=== PATIENT | male | born 2000 | race Caucasian/White ===

== ENCOUNTER 2022-02-12 14:59 | Emergency (ER) | payer SELFPAY ==
[~2022-02-12] VITALS: Ht 167.6 cm; Wt 80.3 kg
[2022-02-12 15:26] VITALS: BP 113/64
[2022-02-12] MEDS ORDERED: NON ADHERENT DRESSING TP SCH (16:05)
[2022-02-12] MEDS ORDERED: IBUPROFEN 600 MG TAB PO ONE (16:05)
[2022-02-12] MEDS ORDERED: BACITRACIN OINT 500 UNITS/GM PKT TP ONE ×2 (16:05→17:35)
[2022-02-12] MEDS ORDERED: IBUP-2213 PO (16:19)
[2022-02-12] MEDS ORDERED: BACI1PAC6 TP (16:19)
[2022-02-12] MEDS ORDERED: SULF-59 PO (16:19)
--- NOTE | 2022-02-12 16:30 | NUR ---
frog splint applied to l thumb. + cms after application. dressing also applied to wound.
[2022-02-12] MEDS ORDERED: IBUPROFEN 600 MG TAB ONE (17:34)
[2022-02-12 18:02] VITALS: BP 132/67
--- NOTE | 2022-02-12 18:02 | NUR ---
Patient discharged with v/s stable. Written and verbal after care instructions given and explained. Patient alert, oriented and verbalized understanding of instructions. Ambulatory with steady gait. All questions addressed prior to discharge. ID band removed. Patient advised to follow up with PMD. Rx of ibuprofen, bacitracin oint, and bactrim given. Patient educated on indication of medication including possible reaction and side effects. Opportunity to ask questions provided and answered.
== END 2022-02-12 18:02 | disposition home or self-care (01) ==
LOC: MED 14:59
DX: S61.411A Laceration without foreign body of right hand, initial encounter (principal); Z88.0 Allergy status to penicillin; Z88.1 Allergy status to other antibiotic agents; X58.XXXA Exposure to other specified factors, initial encounter; Y93.89 Activity, other specified; Y92.89 Other specified places as the place of occurrence of the external cause; Y99.8 Other external cause status
CPT/HCPCS: 90471; 90715; 99283